=== PATIENT | male | born 1995 | race Caucasian/White ===

== ENCOUNTER 2018-06-16 05:04 | Emergency (ER) | payer BC ==
[2018-06-16] MEDS ORDERED: Pantoprazole 40 MG VIAL ONE (05:35)
[2018-06-16] MEDS ORDERED: Ondansetron HCl/PF 4 MG/2 ML Vial ONE (05:35)
[2018-06-16] MEDS ORDERED: Ketorolac Tromethamine 30 MG/ML VIAL ONE (05:35)
[2018-06-16 06:09] LABS: #Lymphocytes 0.6 thou/uL (1.20-3.40); #Monocytes 0.5 thou/uL (0.11-0.59); #Neutrophils 5.2 thou/uL (1.40-6.50); %Basophils 0.3 % (0.0-1.0); %Eosinophils 0.1 % (0.0-10.0); %Lymphocytes 9.7 % (21.0-51.0); %Monocytes 8.2 % (0.0-10.0); %Neutrophils 81.7 % (42.0-75.0); Hemoglobin 14.8 g/dL (14.0-18.0); Mean Corpuscular HGB CONC 34.5 g/dL (32.0-36.0); Mean Corpuscular Hemoglobin 32.3 pg (27.0-31.0); Mean Corpuscular Volume 93.6 fL (78.0-98.0); Mean Platelet Volume 6.9 fL (7.4-10.4); Platelet Count 250 thou/uL (130-400); RBC Distribution Width 12.1 % (11.5-14.5); Red Blood Cell (RBC) Count 4.58 mill/uL (4.70-6.10); White Blood Cell (WBC) Count 6.4 thou/uL (4.8-10.8)
[2018-06-16 07:01] LABS: ALT (SGPT) 12 U/L (8-55); AST (SGOT) 20 U/L (5-34); Albumin 4.7 g/dL (3.5-5.0); Alkaline Phosphatase 111 U/L (40-150); Anion Gap 12 mmol/L (10-20); BUN (Urea Nitrogen) 5 mg/dL (8.9-20.6); Bilirubin, Total 0.8 mg/dL (0.2-1.2); Calc. Creatinine Clearance 0 mL/min (70-130); Calcium 9.3 mg/dL (7.8-10.44); Carbon Dioxide 27 mmol/L (22-29); Chloride 98 mmol/L (98-107); Estimated GFR-MDRD 65; Globulin 3.2 g/dL (2.4-3.5); Glucose 115 mg/dL (70-105); Lipase 21 U/L (8-78); Potassium 3.8 mmol/L (3.5-5.1); Protein, Total 7.9 g/dL (6.0-8.3); Sodium 133 mmol/L (136-145)
== END 2018-06-16 07:25 | disposition home or self-care (01) ==
LOC: ERS 05:04
DX: K52.9 Noninfective gastroenteritis and colitis, unspecified (principal)
CPT/HCPCS: 80053; 83690; 85025; 96361; 96374; 96375; C9113; J1885; J2405

== ENCOUNTER 2018-06-16 16:24 | Emergency (ER) | payer BC ==
[~2018-06-16 16:24] MED LIST: ISOVUE-370 76%-LOCM 1 ML ONE
[2018-06-16] MEDS ORDERED: Ondansetron ODT 4 MG TAB ONE (16:38)
[2018-06-16] MEDS ORDERED: Acetaminophen 500 MG TAB ONE (16:38)
[2018-06-16] MEDS ORDERED: Sucralfate 1 GM/10 ML UDCUP ONE (18:46)
[2018-06-16 19:02] LABS: Bilirubin Negative (Negative); Blood, Urine Negative (Negative); Clarity CLEAR (Clear); Glucose, Urine (Dipstick) Negative (Negative); Leukocyte Negative (Negative); Nitrite Negative (Negative); Protein, Urine (Dipstick) Negative (Neg-Trace); Urobilinogen 0.2 mg/dL (0.2-1.0)
--- NOTE | 2018-06-16 19:03 | CT ---
CT ABDOMEN AND PELVIS WITH CONTRAST: TECHNIQUE: Contrast enhanced CT images of the abdomen and pelvis were obtained after the administration of IV co ntrast. Unfortunately, oral contrast was not given. This does decrease the sensitivity for detectio n of pathology. FINDINGS: The lung bases are unremarkable. No evidence of free intraperitoneal air is seen. The liver and spl een are unremarkable. The gallbladder and pancreas are unremarkable. There is some abnormal enhance ment of the small bowel with a large amount of fluid seen in the small bowel lumen. This may represe nt enteritis. A normal appendix is thought to be visualized, which may contain some fecaliths, best seen on coronal image #86. No definite evidence of intraperitoneal abscess is seen. There is also s ome fluid seen in the colon. There does appear to be a small amount of free fluid in the pelvis. IMPRESSION: 1. Abnormal enhancement of the small bowel, compatible with enteritis. There does appear to be a sm all amount of free pelvic fluid. 2. A normal appendix is thought to be visualized; however, there does appear to be an appendicolith within it. As oral contrast was not given, there is decreased sensitivity for detection of gastroint estinal pathology. Correlate with clinical exam. POS: [facility]
== END 2018-06-16 19:34 | disposition home or self-care (01) ==
LOC: ERS 16:24
DX: R11.2 Nausea with vomiting, unspecified (principal); R19.7 Diarrhea, unspecified
CPT/HCPCS: 74177; 81003; 82274; 87045; 87046; 87449; 87899; 96360; Q0162